=== PATIENT | female | born 1955 | race Caucasian/White ===

== ENCOUNTER 2023-01-07 14:18 | Outpatient (AMB) | payer MEDICARE, SELFPAY ==
[2023-01-07 14:33] VITALS: BP 118/60; PULSE 89; O2SAT 97; BMI 18.2
--- NOTE | 2023-01-07 14:33 | A.OFFVIS_ITS ---
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 The patient is a 67 year woman nonsmoker who symptoms of dyspnea on exertion. Patient apparently developed worsening respiratory symptoms in September 2022, URI. Likely a virus. She was having worsening cough. Also having dyspnea on exertion. She did undergo initial x-ray demonstrating hyperinflation of her lungs suggesting of COPD per report. She was prescribed an albuterol inhaler. The patient was treated appropriately and his symptoms did improve. She became concerned because of the finding of the hyperinflation of the lungs. She lives in house of smokers and therefore was exposed to secondhand smoke. Denies any other exposure to any fumes or toxins. The patient has not use any inhalers at this time. During the visit we did go for brief walking oximetry in the patient did have significant tachycardia active better 120 beats per minute. Oxygenation was stable And was not having significant dyspnea. Explained to the patient that the heart rate may be contributing to her dyspnea symptoms specially if she is going up and up hill where heart rate can climb further. The patient will monitor with a smart watch while she exercises. She states that she is feeling nervous about the visit therefore she is wondering if it could just be from her nerves. So therefore she will monitor closely. She continues to have persistent elevation of heart rate though she needs to have that further address either by primary care or Cardiology. [facility] Medical History (Updated 01/10/23 @ 00:03 by Brandon Govea MD) Hyperinflation of lungs Tachycardia Dyspnea Social History (Updated 01/07/23 @ 14:38 by RONAK Montes) Patient Tobacco Use Status: Never used Tobacco Review of Systems Const Denies fever(s) and Denies weight loss ENT Reports nasal congestion Card Denies chest pain and Reports dyspnea on exertion Resp Reports cough, Reports dyspnea on exertion and Denies wheezing GI Reports no additional complaints Musc Reports no additional complaints Neuro Reports no additional complaints Endo Reports no additional complaints Kedar/Lymph Denies lymphadenopathy Aller/Immun Denies wheezing Physical Exam Vital Signs: Last Vital Signs Pulse 89 01/07/23 14:33 BP 118/60 01/07/23 14:33 Pulse Ox 97 01/07/23 14:33 Oxygen Delivery Method Room Air 01/07/23 14:33 BMI result Body Mass Index 18.2 Const General: comfortable HEENT Head: Yes normocephalic Neck Neck: Yes supple Chest Chest palpation & inspection: normal inspection of the chest Resp Effort & Inspection: normal respiratory effort Auscultation: clear to auscultation bilaterally and other (inspiratory squeek) Cardio Rate: tachycardic Rhythm: regular rhythm Heart sounds: S1 normal heart sound present and S2 normal heart sound present GI Palpation (GI): Soft to palpation Skin General skin exam: no rashes or lesions noted Extrem General: Yes no clubbing, cyanosis or edema Assessment & Plan Assessment & Plan (1) Dyspnea: Code(s): R06.00 - Dyspnea, unspecified Qualifiers: Dyspnea type: dyspnea on exertion Qualified Code(s): R06.09 - Other forms of dyspnea (2) Tachycardia: Code(s): R00.0 - Tachycardia, unspecified (3) Hyperinflation of lungs: Code(s): R09.89 - Other specified symptoms and signs involving the circulatory and respiratory systems Plan PFTs conisder repeating CXR Need to monitor HR,? white coat syndrome , need to address further if persist a s it maybe contributing to her dyspnea symptoms No respiratory therapy at this time F/U 2-3 months Orders: Orders PFT pulmonary function test Today R06.00 - Dyspnea, unspecified Coding Level of Care Code New Pt Level 4 (58447) Diagnoses Dyspnea on exertion R06.09 Dyspnea type: dyspnea on exertion Tachycardia R00.0 Hyperinflation of lungs R09.89 Time Spent (min) 40
== END 2023-01-07 15:08 | disposition home or self-care (01) ==
PROVIDERS: PCP Family Medicine; Visit Provider Hospitalist
DX: R06.09 Other forms of dyspnea (principal); R00.0 Tachycardia, unspecified; R09.89 Other specified symptoms and signs involving the circulatory and respiratory systems
CPT/HCPCS: 99204

== ENCOUNTER → 2023-01-07 14:18 | Outpatient (BNVA) | payer MEDICARE, SELFPAY | PROVIDERS: PCP Family Medicine; Visit Provider Hospitalist | DX: R06.09 Other forms of dyspnea (principal); R00.0 Tachycardia, unspecified; R09.89 Other specified symptoms and signs involving the circulatory and respiratory systems | CPT/HCPCS: 99202 ==

== ENCOUNTER 2023-02-04 13:29 | Outpatient (REF) | payer MEDICARE, SELFPAY | END 2023-02-04 13:30 | disposition home or self-care (01) | LOC: HO.RESP 13:29 | PROVIDERS: Visit Provider Hospitalist | DX: R06.00 Dyspnea, unspecified (principal) | CPT/HCPCS: 94010; 94727; 94729 ==

== ENCOUNTER → 2023-02-04 14:29 | Outpatient (BNV) | payer MEDICARE, SELFPAY | PROVIDERS: Visit Provider Hospitalist | DX: R06.09 Other forms of dyspnea (principal) | CPT/HCPCS: 94060; 94727; 94729 ==

== ENCOUNTER 2023-02-28 14:08 | Outpatient (AMB) | payer MEDICARE, SELFPAY ==
[2023-02-28 14:09] VITALS: BP 90/62; PULSE 101; O2SAT 97; BMI 18.7
--- NOTE | 2023-02-28 14:09 | MHC.OFFVIS ---
Intake Vital Signs 02/28/23 14:09 Height 5 ft 4 in Weight 109 lb 2.061 oz BMI 18.7 BP 90/62 Blood Pressure Location Rt brachial Position Sitting Pulse 101 H Pulse Source Doppler Pulse Oximetry (%) 97 Oxygen Delivery Method Room Air Intake Visit Reasons: Cough Allergies ranitidine [Zantac] Allergy (Unknown, Verified 02/28/23 14:13) mental status change Sulfa Allergy (Unknown, Uncoded 01/07/23 14:36) hives HPI HPI Comments History of Present Illness Details The patient is a 67 year woman nonsmoker who symptoms of dyspnea on exertion. Patient apparently developed worsening respiratory symptoms in September 2022, URI. Likely a virus. She was having worsening cough. Also having dyspnea on exertion. She did undergo initial x-ray demonstrating hyperinflation of her lungs suggesting of COPD per report. She was prescribed an albuterol inhaler. The patient was treated appropriately and his symptoms did improve. She became concerned because of the finding of the hyperinflation of the lungs. She lives in house of smokers and therefore was exposed to secondhand smoke. Denies any other exposure to any fumes or toxins. The patient has not use any inhalers at this time. During the visit we did go for brief walking oximetry in the patient did have significant tachycardia active better 120 beats per minute. Oxygenation was stable And was not having significant dyspnea. Explained to the patient that the heart rate may be contributing to her dyspnea symptoms specially if she is going up and up hill where heart rate can climb further. The patient will monitor with a smart watch while she exercises. She states that she is feeling nervous about the visit therefore she is wondering if it could just be from her nerves. So therefore she will monitor closely. She continues to have persistent elevation of heart rate though she needs to have that further address either by primary care or Cardiology. 02/28/2023 the patient is here for a pulmonary follow-up visit. Overall the patient has been doing well. She did have pulmonary function studies which we personally reviewed. It appears that she has significant small airways disease. Although she does not COPD on the PFT she definitely has an obstructive physiology with significant small airway disease and possibly asthma. She did have a hard time with the albuterol use during the PFT because it resulted in significant tachycardia and an uncomfortable feeling. She continues to have significant tachycardia. She also has a history in the family of bicuspid aortic valve. The patient will benefit from a Cardiology consultation. Will refer her to prior neurotic Cardiology as per the patient's request. If there is a significant delay to her getting a appointment will go ahead and request an echocardiogram. I did review her recent chest x-ray as well. She does have the hyperinflation but more than that she also has some evidence of chronic bronchitis. Will go ahead and provide her with an Acapella valve for her to be able to help herself clear the secretions. Will reassess her condition in the springtime I which point we will decide if any additional imaging. Studies are warranted such as CT scan of the chest to assess for bronchiectatic changes specially in the right mid lung area. [facility] Medical History (Updated 02/28/23 @ 21:34 by Brandon Govea MD) Chronic bronchitis Small airways disease Hyperinflation of lungs Tachycardia Dyspnea Social History (Updated 01/07/23 @ 14:38 by RONAK Montes) Patient Tobacco Use Status: Never used Tobacco Review of Systems Const Denies fever(s) and Denies weight loss ENT Reports nasal congestion Card Denies chest pain and Reports dyspnea on exertion Resp Reports cough, Reports dyspnea on exertion and Denies wheezing GI Reports no additional complaints Musc Reports no additional complaints Neuro Reports no additional complaints Endo Reports no additional complaints Kedar/Lymph Denies lymphadenopathy Aller/Immun Denies wheezing Physical Exam Vital Signs: Last Vital Signs Pulse 101 H 02/28/23 14:09 BP 90/62 02/28/23 14:09 Pulse Ox 97 02/28/23 14:09 Oxygen Delivery Method Room Air 02/28/23 14:09 BMI result Body Mass Index 18.7 Const General: comfortable HEENT Head: Yes normocephalic Neck Neck: Yes supple Chest Chest palpation & inspection: normal inspection of the chest Resp Effort & Inspection: normal respiratory effort Auscultation: clear to auscultation bilaterally Cardio Rate: tachycardic Rhythm: regular rhythm Heart sounds: S1 normal heart sound present and S2 normal heart sound present GI Palpation (GI): Soft to palpation Skin General skin exam: no rashes or lesions noted Extrem General: Yes no clubbing, cyanosis or edema Assessment & Plan Assessment & Plan (1) Dyspnea: Code(s): R06.00 - Dyspnea, unspecified Qualifiers: Dyspnea type: dyspnea on exertion Qualified Code(s): R06.09 - Other forms of dyspnea (2) Tachycardia: Code(s): R00.0 - Tachycardia, unspecified (3) Hyperinflation of lungs: Code(s): R09.89 - Other specified symptoms and signs involving the circulatory and respiratory systems (4) Small airways disease: Code(s): J98.4 - Other disorders of lung (5) Chronic bronchitis: Code(s): J42 - Unspecified chronic bronchitis Qualifiers: Chronic bronchitis type: mixed simple and mucopurulent Qualified Code(s): J41.8 - Mixed simple and mucopurulent chronic bronchitis Plan requesting Acapella valve CHANDRAKANT as needed Cardiology eval for tachycardia consider CT chest to better address the CXR findings and symptoms F/U 4-6 months Orders: Referrals Cardiology Referral R00.0 - Tachycardia, unspecified Coding Level of Care Code Est Pt Level 4 (80634) Diagnoses Dyspnea on exertion R06.09 Dyspnea type: dyspnea on exertion Tachycardia R00.0 Hyperinflation of lungs R09.89 Small airways disease J98.4 Mixed simple and mucopurulent chronic bronchitis J41.8 Chronic bronchitis type: mixed simple and mucopurulent Time Spent (min) 17
== END 2023-02-28 14:38 | disposition home or self-care (01) ==
PROVIDERS: PCP Family Medicine; Visit Provider Hospitalist
DX: R06.09 Other forms of dyspnea (principal); R00.0 Tachycardia, unspecified; R09.89 Other specified symptoms and signs involving the circulatory and respiratory systems; J98.4 Other disorders of lung; J41.8 Mixed simple and mucopurulent chronic bronchitis
CPT/HCPCS: 99214

== ENCOUNTER → 2023-02-28 14:08 | Outpatient (BNVA) | payer MEDICARE, SELFPAY | PROVIDERS: PCP Family Medicine; Visit Provider Hospitalist | DX: R06.09 Other forms of dyspnea (principal); J41.8 Mixed simple and mucopurulent chronic bronchitis; J98.4 Other disorders of lung; R09.89 Other specified symptoms and signs involving the circulatory and respiratory systems; R00.0 Tachycardia, unspecified | CPT/HCPCS: 99212 ==

== ENCOUNTER → 2023-03-22 13:14 | Outpatient (REF) | payer MEDICARE, SELFPAY ==
--- NOTE | 2023-03-22 13:18 | ECG_ITS ---
Test Reason : copd Blood Pressure : / mmHG Vent. Rate : 086 BPM Atrial Rate : 086 BPM P-R Int : 164 ms QRS Dur : 060 ms QT Int : 344 ms P-R-T Axes : 076 082 071 degrees QTc Int : 411 ms Normal sinus rhythm Normal ECG No previous ECGs available Referred By: Brandon Govea Electronically Signed By:SAUL VIEIRA MD
== END ==
LOC: HO.CARD 13:14
PROVIDERS: Visit Provider Hospitalist
DX: J44.9 Chronic obstructive pulmonary disease, unspecified (principal); R00.0 Tachycardia, unspecified; R06.09 Other forms of dyspnea
CPT/HCPCS: 93005

== ENCOUNTER → 2023-04-18 13:01 | Outpatient (REF) | payer MEDICARE, SELFPAY ==
--- NOTE | 2023-04-18 13:03 | CA_ITS ---
Transthoracic Echocardiogram Patient (Last, First, Middle): Edith Royal A Gender: Female Date of : 1955 Age: 67 Procedure Date: 04/18/2023 Procedure Type: Transthoracic Echocardiogram Location: OP Height: 162.56 cm Weight: 47.63 kg BSA: 1.49 m2 Heart Rate: bpm BP: 120 / 70 mmHg Director Digital Strategy: MAGY Referring MD: Brandon Govea MD Field Producer: Wellington Alas MD Symptoms: I27.20 - Pulmonary hypertension, unspecified Study Quality: Fair ECG Rhythm: Sinus Conclusions: - 1. Normal measured LV ejection fraction of 60 65% 2. Normal cardiac valvular Doppler 3. Normal RV systolic pressure 4. No gross pericardial effusion Findings Left Ventricle Normal left ventricular size, thickness, and systolic function. The visually estimated ejection fraction is between 60-65%. There is no evidence of regional wall motion abnormalities. Spectral Doppler is indicative of a normal filling pattern. Peak GLS is -17.2%, borderline low. Right Ventricle Normal right ventricular cavity size and systolic function. Atria The left atrium is normal in size. Interatrial shunt cannot be excluded. The right atrium is normal in size. Aortic Valve Normal aortic valve structure and function. There is no aortic valve stenosis. There is no aortic valve regurgitation. Mitral Valve Likely normal mitral valve structure and function. There is mild mitral valve regurgitation. There is no mitral valve stenosis. Pulmonic Valve The pulmonic valve is likely normal. There is trace pulmonic valve regurgitation. Tricuspid Valve Normal tricuspid valve structure. There is trace tricuspid valve regurgitation. The right ventricular systolic pressure is normal. The right ventricular systolic pressure is 26 mmHg. Normal right atrial pressure. There is no evidence of pulmonary hypertension. Great Vessels The pulmonary artery was not well visualized. There is no dilatation of the ascending aorta. Venous The inferior vena cava is normal in size and collapses greater than 50% with inspiration. Pericardium/Pleural There is no evidence of pericardial effusion. Prior Study Comparison No prior study available for comparison. Measurements 2D Linear Measurements IVSd: 0.62 0.6-0.9/0.6-1.0 cm LVIDd: 3.45 3.9-5.3/4.2-5.9 cm LVIDd Index: 2.32 2.4-3.2/2.2-3.1 cm/m2 LVIDs: 2.10 2.0-3.6 cm LVPWd: 1.05 0.7-1.1 cm LA Diam: 2.50 2.7-3.8/3.0-4.0 cm LAIDs Index: 1.68 1.5-2.3 cm/m2 LV Mass: 96.80 67-162/88-224 g LV Mass Index: 64.97 43-95/49-115 g/m2 LVOT Diam: 1.90 3.0+(-)1.3 cm 2D Systolic Function EF 4C: 58.60 >55% EF 2C: 73.10 >55% EF BiP: 65.20 >55% Mitral Valve MV Pk E: 0.75 MV PK A: 0.71 MV Decel Time: 151.00 E/A: 1.10 E'Lateral: 9.57 E'Medial: 7.72 E/E' Med: 9.80 E/E' Lat: 7.90 PHT: 44.00 MVA PHT: 5.00 Decel [place]: 5.01 Aortic Valve AoV Pk Tong: 1.08 AoV Mn Tong: 0.75 AoV VTI: 0.23 AoV Pk Grad: 5.00 Aov Mn Grad: 3.00 OLIVA Cont.VTI: 2.38 LVOT LVOT Pk Tong: 0.95 LVOT Mn Tong: 0.62 LVOT VTI: 0.19 LVOT Pk Grad: 4.00 LVOT Mn Grad: 2.00 LVOT Diam: 1.90 LVOT Area: 2.84 Diastolic Function MV Pk E: 0.75 MV Pk A: 0.71 E/A: 1.10 E'Medial: 7.72 E/E' Med: 9.80 E' Laterial: 9.57 E/E' Lat: 7.90 Right Ventricle TAPSE (mm): 19.00 TVS' Tong: 12.10 Tricuspid Valve TR Pk Tong: 2.38 TR Pk Grad: 23.00 RA Press: 3.00 RVSP: 26.00 Great Vessels Aorta Sinus of Valsalva: 2.93 2.0-3.[address] [place]: 2.29 1.7-3.4 cm Updated in Other Vendor System with Status of Final Wellington Alas MD electronically signed on 04/18/2023 5:25:01 PM with status of Final
== END ==
LOC: HO.CARD 13:01
PROVIDERS: PCP Family Medicine; Visit Provider Hospitalist
DX: I27.20 Pulmonary hypertension, unspecified (principal); R00.0 Tachycardia, unspecified; R06.09 Other forms of dyspnea
CPT/HCPCS: 93306; 93356

== ENCOUNTER → 2023-04-18 13:03 | Outpatient (BNV) | payer MEDICARE, SELFPAY | PROVIDERS: PCP Family Medicine; Visit Provider Internal Medicine Cardiovascular Disease | DX: I34.0 Nonrheumatic mitral (valve) insufficiency (principal) | CPT/HCPCS: 93306 ==

== ENCOUNTER → 2023-06-01 13:25 | Outpatient (BNVA) | payer MEDICARE, SELFPAY | PROVIDERS: PCP Family Medicine; Visit Provider Hospitalist ==

== ENCOUNTER 2023-08-12 14:18 | Outpatient (AMB) | payer MEDICARE, SELFPAY ==
[2023-08-12 14:26] VITALS: BP 122/64; PULSE 107; O2SAT 98; BMI 17.8
--- NOTE | 2023-08-12 14:26 | MHC.OFFVIS ---
Intake Vital Signs 08/12/23 14:26 Height 5 ft 4 in Weight 104 lb BMI 17.8 BP 122/64 Blood Pressure Location Lt brachial Position Sitting Pulse 107 H Pulse Source Pulse Oximeter Pulse Oximetry (%) 98 Oxygen Delivery Method Room Air Intake Visit Reasons: Cough Allergies ranitidine [Zantac] Allergy (Unknown, Verified 08/12/23 14:30) mental status change Sulfa Allergy (Unknown, Uncoded 08/12/23 14:30) hives HPI HPI Comments History of Present Illness Details The patient is a 68 year woman nonsmoker who symptoms of dyspnea on exertion. Patient apparently developed worsening respiratory symptoms in September 2022, URI. Likely a virus. She was having worsening cough. Also having dyspnea on exertion. She did undergo initial x-ray demonstrating hyperinflation of her lungs suggesting of COPD per report. She was prescribed an albuterol inhaler. The patient was treated appropriately and his symptoms did improve. She became concerned because of the finding of the hyperinflation of the lungs. She lives in house of smokers and therefore was exposed to secondhand smoke. Denies any other exposure to any fumes or toxins. The patient has not use any inhalers at this time. During the visit we did go for brief walking oximetry in the patient did have significant tachycardia active better 120 beats per minute. Oxygenation was stable And was not having significant dyspnea. Explained to the patient that the heart rate may be contributing to her dyspnea symptoms specially if she is going up and up hill where heart rate can climb further. The patient will monitor with a smart watch while she exercises. She states that she is feeling nervous about the visit therefore she is wondering if it could just be from her nerves. So therefore she will monitor closely. She continues to have persistent elevation of heart rate though she needs to have that further address either by primary care or Cardiology. 02/28/2023 the patient is here for a pulmonary follow-up visit. Overall the patient has been doing well. She did have pulmonary function studies which we personally reviewed. It appears that she has significant small airways disease. Although she does not COPD on the PFT she definitely has an obstructive physiology with significant small airway disease and possibly asthma. She did have a hard time with the albuterol use during the PFT because it resulted in significant tachycardia and an uncomfortable feeling. She continues to have significant tachycardia. She also has a history in the family of bicuspid aortic valve. The patient will benefit from a Cardiology consultation. Will refer her to prior neurotic Cardiology as per the patient's request. If there is a significant delay to her getting a appointment will go ahead and request an echocardiogram. I did review her recent chest x-ray as well. She does have the hyperinflation but more than that she also has some evidence of chronic bronchitis. Will go ahead and provide her with an Acapella valve for her to be able to help herself clear the secretions. Will reassess her condition in the springtime I which point we will decide if any additional imaging. Studies are warranted such as CT scan of the chest to assess for bronchiectatic changes specially in the right mid lung area. 08/12/2023 the patient is here for pulmonary follow-up visit. She has doing a lot better. The patient is exercising more regularly. She had been using the Acapella valve but subsequently stopped using his and she has not coughing any longer or any significant amount. She still has an issue with a heart rate. She will be following up with Cardiology soon. I did give her a copy of the echocardiogram demonstrating normal cardiac function. The patient does have initial with the thyroid in does take thyroid medication. She did decrease the dose a little bit with the help of her protective services social worker to see if that would help. The patient also is wondering about her chest x-ray. Her last x-ray did demonstrate some bronchiectatic changes primarily in the right mid and right lower area. Will go ahead and repeat the x-ray at this time even though she is doing better just to see what her new baseline is. This may be chronic changes. These changes could be further addressed with a CT scan although she is doing well right now so we can hold off on additional testing but something to consider in the future. Right now she is doing well so will follow-up as needed basis. If she has any issues when he concerned she can always call for an assessment. [facility] Medical History (Updated 02/28/23 @ 21:34 by Brandon Govea MD) Chronic bronchitis Small airways disease Hyperinflation of lungs Tachycardia Dyspnea Social History Patient Tobacco Use Status: Never used Tobacco Review of Systems Const Denies fever(s) and Denies weight loss ENT Reports nasal congestion Card Denies chest pain and Reports dyspnea on exertion Resp Reports cough, Reports dyspnea on exertion and Denies wheezing GI Reports no additional complaints Musc Reports no additional complaints Neuro Reports no additional complaints Endo Reports no additional complaints Kedar/Lymph Denies lymphadenopathy Aller/Immun Denies wheezing Physical Exam Vital Signs: Last Vital Signs Pulse 107 H 08/12/23 14:26 BP 122/64 08/12/23 14:26 Pulse Ox 98 08/12/23 14:26 Oxygen Delivery Method Room Air 08/12/23 14:26 BMI result Body Mass Index 17.8 Const General: comfortable HEENT Head: Yes normocephalic Neck Neck: Yes supple Chest Chest palpation & inspection: normal inspection of the chest Resp Effort & Inspection: normal respiratory effort Auscultation: clear to auscultation bilaterally Cardio Rate: tachycardic Rhythm: regular rhythm Heart sounds: S1 normal heart sound present and S2 normal heart sound present GI Palpation (GI): Soft to palpation Skin General skin exam: no rashes or lesions noted Extrem General: Yes no clubbing, cyanosis or edema Assessment & Plan Assessment & Plan (1) Dyspnea: Code(s): R06.00 - Dyspnea, unspecified Qualifiers: Dyspnea type: dyspnea on exertion Qualified Code(s): R06.09 - Other forms of dyspnea (2) Tachycardia: Code(s): R00.0 - Tachycardia, unspecified (3) Hyperinflation of lungs: Code(s): R09.89 - Other specified symptoms and signs involving the circulatory and respiratory systems (4) Small airways disease: Code(s): J98.4 - Other disorders of lung (5) Chronic bronchitis: Code(s): J42 - Unspecified chronic bronchitis Qualifiers: Chronic bronchitis type: mixed simple and mucopurulent Qualified Code(s): J41.8 - Mixed simple and mucopurulent chronic bronchitis Plan Acapella valve for CPT as needed CHANDRAKANT as needed Cardiology eval for tachycardia Repeat XR, if abnormal consider CT chest F/U 12 months or as needed Orders: Orders XR chest 2V 08/12/23 J41.8 - Mixed simple and mucopurulent chronic bronchitis Coding Level of Care Code Est Pt Level 4 (73394) Diagnoses Dyspnea on exertion R06.09 Dyspnea type: dyspnea on exertion Tachycardia R00.0 Hyperinflation of lungs R09.89 Small airways disease J98.4 Mixed simple and mucopurulent chronic bronchitis J41.8 Chronic bronchitis type: mixed simple and mucopurulent Time Spent (min) 17
== END 2023-08-12 14:47 | disposition home or self-care (01) ==
PROVIDERS: PCP Family Medicine; Visit Provider Hospitalist
DX: R06.09 Other forms of dyspnea (principal); R00.0 Tachycardia, unspecified; R09.89 Other specified symptoms and signs involving the circulatory and respiratory systems; J98.4 Other disorders of lung; J41.8 Mixed simple and mucopurulent chronic bronchitis
CPT/HCPCS: 99214

== ENCOUNTER → 2023-08-12 14:18 | Outpatient (BNVA) | payer MEDICARE, SELFPAY | PROVIDERS: PCP Family Medicine; Visit Provider Hospitalist | DX: R06.09 Other forms of dyspnea (principal); R00.0 Tachycardia, unspecified; R09.89 Other specified symptoms and signs involving the circulatory and respiratory systems; J98.4 Other disorders of lung; J41.8 Mixed simple and mucopurulent chronic bronchitis | CPT/HCPCS: 99212 ==

== ENCOUNTER 2024-10-01 14:16 | Outpatient (AMB) | payer MEDICARE, SELFPAY ==
[2024-10-01 14:18] VITALS: O2SAT 96
--- NOTE | 2024-10-01 14:18 | MHC.OFFVIS ---
Vital Signs 10/01/24 14:18 Pulse Oximetry (%) 96 Oxygen Delivery Method Room Air Intake Visit Reasons: small airway Insurance Follow Up Specialist Required: No Accompanied by: Spouse Allergies ranitidine [Zantac] Allergy (Unknown, Verified 10/01/24 14:21) mental status change Sulfa Allergy (Unknown, Uncoded 08/12/23 14:30) hives HPI Comments Details: The patient is a 69 year woman nonsmoker who symptoms of dyspnea on exertion. Patient apparently developed worsening respiratory symptoms in September 2022, URI. Likely a virus. She was having worsening cough. Also having dyspnea on exertion. She did undergo initial x-ray demonstrating hyperinflation of her lungs suggesting of COPD per report. She was prescribed an albuterol inhaler. The patient was treated appropriately and his symptoms did improve. She became concerned because of the finding of the hyperinflation of the lungs. She lives in house of smokers and therefore was exposed to secondhand smoke. Denies any other exposure to any fumes or toxins. The patient has not use any inhalers at this time. During the visit we did go for brief walking oximetry in the patient did have significant tachycardia active better 120 beats per minute. Oxygenation was stable And was not having significant dyspnea. Explained to the patient that the heart rate may be contributing to her dyspnea symptoms specially if she is going up and up hill where heart rate can climb further. The patient will monitor with a smart watch while she exercises. She states that she is feeling nervous about the visit therefore she is wondering if it could just be from her nerves. So therefore she will monitor closely. She continues to have persistent elevation of heart rate though she needs to have that further address either by primary care or Cardiology. 02/28/2023 the patient is here for a pulmonary follow-up visit. Overall the patient has been doing well. She did have pulmonary function studies which we personally reviewed. It appears that she has significant small airways disease. Although she does not COPD on the PFT she definitely has an obstructive physiology with significant small airway disease and possibly asthma. She did have a hard time with the albuterol use during the PFT because it resulted in significant tachycardia and an uncomfortable feeling. She continues to have significant tachycardia. She also has a history in the family of bicuspid aortic valve. The patient will benefit from a Cardiology consultation. Will refer her to prior neurotic Cardiology as per the patient's request. If there is a significant delay to her getting a appointment will go ahead and request an echocardiogram. I did review her recent chest x-ray as well. She does have the hyperinflation but more than that she also has some evidence of chronic bronchitis. Will go ahead and provide her with an Acapella valve for her to be able to help herself clear the secretions. Will reassess her condition in the springtime I which point we will decide if any additional imaging. Studies are warranted such as CT scan of the chest to assess for bronchiectatic changes specially in the right mid lung area. 08/12/2023 the patient is here for pulmonary follow-up visit. She has doing a lot better. The patient is exercising more regularly. She had been using the Acapella valve but subsequently stopped using his and she has not coughing any longer or any significant amount. She still has an issue with a heart rate. She will be following up with Cardiology soon. I did give her a copy of the echocardiogram demonstrating normal cardiac function. The patient does have initial with the thyroid in does take thyroid medication. She did decrease the dose a little bit with the help of her revenue specialist to see if that would help. The patient also is wondering about her chest x-ray. Her last x-ray did demonstrate some bronchiectatic changes primarily in the right mid and right lower area. Will go ahead and repeat the x-ray at this time even though she is doing better just to see what her new baseline is. This may be chronic changes. These changes could be further addressed with a CT scan although she is doing well right now so we can hold off on additional testing but something to consider in the future. Right now she is doing well so will follow-up as needed basis. If she has any issues when he concerned she can always call for an assessment. 10/01/2024 the patient is here for pulmonary follow-up visit. Overall she is doing okay she did have a respiratory illness that went to the lungs and cause her to have significant cough chest congestion. She was sick for few weeks but now she is back to baseline. She is concerned every time she has a cold or infection goes right to the lungs and causes have it. We did review her imaging studies x-rays demonstrating the bronchiectatic changes initially and her previous x-ray and some improvement on the previous 1 that she had in 2023. Will go ahead and have her get a repeat x-ray sometime before the next visit. We talked about CPT. With the chest congestion she benefits from hypertonic saline and also benefits from her flutter valve that she has already. Will go ahead and start her on nebulizer with hypertonic saline that she can do twice a day and she can followed up with the Acapella valve. If she has any worsening symptoms she will call. I also provide her with sputum cup for culture both for Gram stain culture and AFB specially to rule out the possibility of non tuberculosis mycobacterial infections. The patient overall is doing well she will continue to stay active and exercise. She did follow-up with Cardiology and felt better heart was okay. Will follow-up in a year's time with the x-ray otherwise she can always call for an earlier assessment. Also to note she does not believe in vaccines. We did talk about the importance at least the Prevnar 21 and also making sure that she has her updated booster for pertussis. Flu and RSV would also be important but again she does not prefer to do any vaccines at this time. [facility] Medical History (Updated 02/28/23 @ 21:34 by Brandon Govea MD) Chronic bronchitis Small airways disease Hyperinflation of lungs Tachycardia Dyspnea Social History Patient Tobacco Use Status: Never used Tobacco Review of Systems Const Denies fever(s) and Denies weight loss ENT Reports nasal congestion Card Denies chest pain and Reports dyspnea on exertion Resp Reports chest congestion, Reports cough, Reports dyspnea on exertion and Denies wheezing GI Reports no additional complaints Musc Reports no additional complaints Neuro Reports no additional complaints Endo Reports no additional complaints Kedar/Lymph Denies lymphadenopathy Aller/Immun Denies wheezing Physical Exam Vital Signs: Last Vital Signs Pulse Ox 96 10/01/24 14:18 Oxygen Delivery Method Room Air 10/01/24 14:18 Const General: comfortable HEENT Head: Yes normocephalic Neck Neck: Yes supple Chest Chest palpation & inspection: normal inspection of the chest Resp Effort & Inspection: normal respiratory effort Auscultation: diminished lung sounds Cardio Rate: tachycardic Rhythm: regular rhythm Heart sounds: S1 normal heart sound present and S2 normal heart sound present GI Palpation (GI): Soft to palpation Skin General skin exam: no rashes or lesions noted Extrem General: Yes no clubbing, cyanosis or edema Assessment & Plan Assessment & Plan (1) Dyspnea: Code(s): R06.00 - Dyspnea, unspecified Category: Medical Qualifiers: Dyspnea type: dyspnea on exertion Qualified Code(s): R06.09 - Other forms of dyspnea (2) Hyperinflation of lungs: Code(s): R09.89 - Other specified symptoms and signs involving the circulatory and respiratory systems Category: Medical (3) Small airways disease: Code(s): J98.4 - Other disorders of lung Category: Medical (4) Chronic bronchitis: Code(s): J42 - Unspecified chronic bronchitis Category: Medical Qualifiers: Chronic bronchitis type: mixed simple and mucopurulent Qualified Code(s): J41.8 - Mixed simple and mucopurulent chronic bronchitis Plan Acapella valve for CPT as needed CHANDRAKANT as needed start Nebulizer (provided in the office) with hypertonic saline BID for CPT sputum cx and AFB Repeat XR, if abnormal consider CT chest F/U 12 months or as needed Orders: Orders Sputum Cult + Gram stain Today R91.1 - Solitary pulmonary nodule Acid-fast Culture + Smear Today R91.1 - Solitary pulmonary nodule Medications: New sodium chloride 3% 4 mL inhalation BID 240 mL 11RF 30 days Coding Level of Care Code Est Pt Level 4 (63028) Complex EM visit Add On G2211 Diagnoses Dyspnea on exertion R06.09 Dyspnea type: dyspnea on exertion Hyperinflation of lungs R09.89 Small airways disease J98.4 Mixed simple and mucopurulent chronic bronchitis J41.8 Chronic bronchitis type: mixed simple and mucopurulent Time Spent (min) 18
--- OUTSIDE RECORDS SUMMARY | 2024-10-01 15:32 | XMS_ITS | Patient Health Record ---
Author Organization [facility] Address [address] [place] [address] Support Name Relationship Address Phone BRYAN RAMÍREZ Guarantor Unknown [phone] Reason For Referral No Information Medications Medication SIG (Take, Route, Frequency, Duration) Notes Start Date End Date Status Multivitamins 1 ORAL daily for [facility] 08/31/2012 Active Kava Kava 1 ORAL PRN ANXIETY for [facility] 08/31/2012 Active Co Q-10 100MG 1 ORAL twice daily for [facility] 08/31/2012 Active Magnesium 300MG 1 ORAL daily for [facility] 08/31/2012 Active L-Carnitine 500MG 2 ORAL twice daily for [facility] 2012 Active Alpha Lipoic Acid 300MG 1 ORAL daily for [facility] 2012 Active Zinc 15MG 1 ORAL daily for [facility] 08/31/2012 Active Vitamin D3 5 000 IU ORAL daily for [facility] 08/31/2012 Active Astragalus Root 940MG 1 ORAL twice daily for [facility] Active Resveratrol 200MG 1 ORAL daily for [facility] 08/31/2012 Active Problems Problem Type SNOMED Code ICD Code Onset Dates Problem Status W/U Status Risk Notes Problem Urethritis (disorder) (55773240) Unspecified urethritis (597.80) Active confirmed Diag Problem Postmenopausal atrophic vaginitis (02672499) Postmenopausal atrophic vaginitis (627.3) Active confirmed Diag Problem Gynecological examination normal (348895753749352) Routine gynecological examination (V72.31) Active confirmed Major Problem Screening for malignant neoplasm of colon (963484357) Special screening for malignant neoplasms, colon (V76.51) Active confirmed Major Plan Of Treatment No Information Insurance Providers Payer Name Payer Address Payer Phone Subscriber Number Group Number Insured Name Patient Relationship to Insured Coverage Start Date Coverage End Date [facility] [address] [address] [place] [address] [id number] BRYAN RAMÍREZ Self - patient is the insured
== END 2024-10-01 16:22 | disposition home or self-care (01) ==
LOC: HO.HPS 14:17
PROVIDERS: PCP Family Medicine; Visit Provider Hospitalist
DX: R06.09 Other forms of dyspnea (principal); R09.89 Other specified symptoms and signs involving the circulatory and respiratory systems; J98.4 Other disorders of lung; J41.8 Mixed simple and mucopurulent chronic bronchitis
CPT/HCPCS: 99214; G2211

== ENCOUNTER → 2024-10-01 14:16 | Outpatient (BNVA) | payer MEDICARE, SELFPAY | PROVIDERS: PCP Family Medicine; Visit Provider Hospitalist | DX: J41.8 Mixed simple and mucopurulent chronic bronchitis (principal); J98.4 Other disorders of lung; R06.09 Other forms of dyspnea; R09.89 Other specified symptoms and signs involving the circulatory and respiratory systems | CPT/HCPCS: 99212 ==